=== PATIENT | male | born 1945 | race Two or more races ===

== ENCOUNTER 2017-04-12 06:59 | Day surgery (SDC) | payer MEDICARE, OTHER ==
--- NOTE | 2017-04-08 13:45 | Pre-Procedure Note/Attestation ---
Pre-Procedure Note/Attestation Complete Prior to Procedure Planned Procedure: bilateral Procedure Narrative: 1- Ptosis correction upper lids. 2- Entropion correction upper lids. 3-Blepharoplasty uppers lids. 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 I attest that, if there was a reasonable possibility of needing a blood transfusion, the patient (or the patient's legal district sales representative) was given the [facility] standardized written summary, pursuant to the Leonel Ivette Blood Safety Act ([place] Health and Safety Code # 1645, as amended). I attest that I re-evaluated the patient just prior to the surgery and that there has been no change in the patient's H&P, except as documented below: BG BRUCE Apr 08, 2017 13:45
[2017-04-12] VITALS (9 sets, daily range): BP systolic 132–145; BP diastolic 68–84
[~2017-04-12] VITALS: Ht 182.9 cm; Wt 81.6 kg
[~2017-04-12 06:59] MED LIST: Akten 3.5% 1ml Btl BOTH EYES ONE; Bupivacaine 0.75% 30ml vial INJ ONE; Maxitrol Opth Oint 3.5gm BOTH EYES ONE; NKM; Povidone-Iodine 5% opth solution ONE
[2017-04-12] MEDS ORDERED: Akten 3.5% 1ml Btl ONE (07:15)
[2017-04-12] MEDS ORDERED: fentaNYL 100 mcg/2 mL IV ONE (08:30)
[2017-04-12] MEDS ORDERED: LR 1000ml ONE (08:30)
[2017-04-12] MEDS ORDERED: Midazolam 2mg/2ml Inj ONE (08:30)
[2017-04-12] MEDS ORDERED: Lidocaine 2% 20mg/ml/Epi 0.005mg/ml 20ml vial ONE (08:30)
[2017-04-12] MEDS ORDERED: Propofol 200mg/20ml IV ONE (08:30)
[2017-04-12] MEDS ORDERED: LR 1000ml 1,000 ML IVLG SCH (08:55)
--- NOTE | 2017-04-12 08:55 | Anethesia Preoperative Eval ---
Anesthesia Pre-op PMH/ROS General Date of Evaluation: Apr 12, 2017 Time of Evaluation: 08:22 Anesthesiologist: Taylor ASA Score: ASA 2 Mallampati Score Class I : Soft palate, uvula, fauces, pillars visible Class II: Soft palate, uvula, fauces visible Class III: Soft palate, base of uvula visible Class IV: Only hard plate visible Mallampati Classification: Class II Surgeon: Hina Diagnosis: Bilateral ptosis Surgical Procedure: Bilateral blepharoplasty Anesthesia History: none Family History: no anesthesia problems Allergies: Coded Allergies: No Known Allergies (Unverified , 04/11/17) Medications: see eMAR Past Medical History Cardiovascular: Reports: HTN - mild, Denies: CAD, ND, valve dz, arrhythmia, other Pulmonary: Denies: asthma, COPD, [place], other Gastrointestinal/Genitourinary: Reports: GERD - mild, Denies: CRI, ESRD, other Neurologic/Psychiatric: Denies: dementia, CVA, depression/anxiety, TIA, other Endocrine: Denies: DM, hypothyroidism, steroids, other HEENT: Denies: cataract (L), cataract (R), glaucoma, [place] (L), [place] (R), other Hematology/Immune: Denies: anemia, DVT, bleeding disorder, other Musculoskeletal/Integumentary: Denies: OA, RA, DJD, DDD, edema, other PMH Narrative: as above PSxH Narrative: Cholecystectomy Anesthesia Pre-op Phys. Exam Physician Exam Last Vital Signs Date Time Temp Pulse Resp B/P (MAP) Pulse Ox O2 Delivery O2 Flow Rate FiO2 04/12/17 07:46 97.2 67 18 140/77 95 Room Air Constitutional: NAD Neurologic: CN 2-12 intact Cardiovascular: RRR, no M/R/G Respiratory: CTA Gastrointestinal: S/NT/ND Airway Exam Mallampati Score: Class II MO: limited Neck: stiff ROM: limited Teeth: missing Dentures: no upper, no lower Anesthesia Pre-op A/P Labs see chart Studies Pre-op Studies: EKG - NSR Risk Assessment & Plan Assessment: ASA 2 Plan: MAC Status Change Before Surgery: No Pre-Antibiotics Drug: none KEENAN ROJAS M.D. Apr 12, 2017 08:55
[2017-04-12] MEDS ORDERED: fentaNYL 100 mcg/2 mL IV PRN (09:00)
[2017-04-12] MEDS ORDERED: DiphenhydrAMINE 50mg/ml Inj IVP PRN (09:00)
--- NOTE | 2017-04-12 10:11 | Discharge Summary ---
Discharge Summary Discharge Summary Discharge Summary DATE OF ADMISSION: 04/12/2017 DATE OF DISCHARGE: 04/12/2017 REASON FOR HOSPITALIZATION: 1- Ptosis upper lids 2- entropion, upper lids 3- dermatochalasis, blepharochalasis, upper lids SURGERY PERFORMED: 1- Ptosis correction, upper lids 2- Entropion correction, upper lids 3- blepharoplasty, upper lids CONDITION IN THE HOSPITAL:The patient tolerated the surgery without complications. DISCHARGE CONDITION: The patient was stable at discharge. DISCHARGE MEDICATIONS: 1. Tobradex eye drops one drop q.i.d, OU 2. Maxitrol eye ointment apply to lids bid, OU 3. Keflex 500mg, one PO q8h. 4- [place] 5/325mg one Po q6h PRN per pain POSTOPERATIVE ORDERS: The patient has to rest at home. No bending, No lifting, No watching Television tonight. POSTOPERATIVE FOLLOW UP: The patient will be followed in my office tomorrow morning at 7 o'clock. BG BRUCE Apr 12, 2017 10:11
--- NOTE | 2017-04-12 11:21 | Immediate Post-Op Evaluation ---
Immediate Post-Op Evalulation Immediate Post-Op Evalulation Procedure: Bilateral blepharoplasty Date of Evaluation: Apr 12, 2017 Time of Evaluation: 10:12 IV Fluids: 400 Blood Products: none Estimated Blood Loss: min Urinary Output: none Blood Pressure Systolic: 134 Blood Pressure Diastolic: 63 Pulse Rate: 62 Respiratory Rate: 20 O2 Sat by Pulse Oximetry: 99 Temperature (Fahrenheit): 97.5 Pain Score (1-10): 2 Nausea: No Vomiting: No Complications none Patient Status: awake, patent, none Hydration Status: adequate KEENAN ROJAS M.D. Apr 12, 2017 11:21
--- NOTE | 2017-04-12 11:23 | 48 Hour Post Anesthesia Eval ---
Post Anesthesia Evaluation Procedure: Bilateral blepharoplasty Date of Evaluation: Apr 12, 2017 Time of Evaluation: 11:21 Blood Pressure Systolic: 136 0: 74 Pulse Rate: 64 Respiratory Rate: 18 Temperature (Fahrenheit): 97.6 O2 Sat by Pulse Oximetry: 98 Airway: patent Nausea: No Vomiting: No Pain Intensity: 1 Hydration Status: adequate Cardiopulmonary Status: stable Mental Status/LOC: patient returned to baseline Follow-up Care/Observations: n/a Post-Anesthesia Complications: none Follow-up care needed: ready to discharge KEENAN ROJAS M.D. Apr 12, 2017 11:22
--- NOTE | 2017-04-13 08:31 | Operative Note - Dictated ---
DATE OF OPERATION: 04/12/2017 FACILITY: [facility]. SURGEON: Duran Santamaria M.D. DOG TRAINER: None. ANESTHESIOLOGIST: Jadiel Vazquez M.D. ANESTHESIA: Monitored anesthesia care (MAC) plus local anesthesia with lidocaine 2% with epinephrine 1:100,000. PREOPERATIVE DIAGNOSES: 1. Ptosis, upper lids. 2. Entropion, upper lids. 3. Dermatochalasis and blepharochalasis, upper lids. POSTOPERATIVE DIAGNOSES: 1. Ptosis, upper lids. 2. Entropion, upper lids. 3. Dermatochalasis and blepharochalasis, upper lids. SURGERY PERFORMED: 1. Ptosis correction, upper lids. 2. Entropion correction, upper lids. 3. Blepharoplasty, upper lids. INDICATION FOR SURGERY: The patient is a 71-year-old gentleman with no past medical history. He is not taking any medications. He is not allergic to any medications. He is not drinking. He is not smoking. The patient's past surgery including cholecystectomy 5 years ago. The patient is complaining of blurry vision and droopy eyelids and difficulty driving because of upper lid droopiness. He is suffering from severe blepharochalasis, ptosis, and entropion of the upper lids. This problem is progressive dermatochalasis skin disease, which resulted in changes of corneal curvature, which induces astigmatism with covering of the visual axis, which is interruption for driving. The severity of the patient's dermatochalasis, ptosis, and entropion and other clinical changes are clearly demonstrated on enclosed photos and the patient's visual lawrence. The only solution for this patient is correction of all those disfigurements and anatomic changes with surgery. There is no alternative for that. INFORMED CONSENT: The nature of the surgery, risks, benefits, alternatives, and potential complications were explained in detail to the patient in his language Farsi. He voiced understanding and accepted all the complications. The potential complications including, but not limited to bleeding, infection, corneal exposure, overcorrection, undercorrection, ecchymosis, swelling of the face, hematoma, dry eye syndrome, loss of eyelashes, loss of eyebrow, inequality of both eyes, changes in vision, even loss of the vision, and loss of the eye were explained in detail to the patient. The patient voiced understanding and accepted all the complications. Then, he signed the consent form, which is in the chart. DESCRIPTION OF SURGERY AND FINDINGS: Following that, the patient was taken to the operation room in a stable condition. Lidocaine gel [place] 3.5% were applied to the conjunctiva of both eyes. Following that, the upper eyelids were marked with a marking pen 10 mm above the root of the eyelashes and 15 mm below the lower part of the eyebrows. About 25 mm of the skin was left to facilitate the eye closure. IV sedation was given by the anesthesiologist, Dr. Vazquez. After adequate anesthesia and sedation had been achieved, the upper eyelid, eyebrows, and 06:04 skin all were anesthetized with 2% lidocaine with epinephrine 1:100,000. Following that, using a Bovie knife, the skin and subdermal tissue were dissected from the orbicularis oculi muscle and excised. A cut was made in to the orbicularis oculi muscle and 2 fat compartments were released and sculptured conservatively. Following that, the levator palpebrae superioris tendon was tacked about 6 mm and stitched with 6-0 Vicryl and then it was stitched with a Quill entering into the tissue. Following that, a groove was made about 3 mm above the root of the superior eyelid lashes. Then, the material inside the groove was excised. Following that, with 6-0 Vicryl, the lids of the groove was stitched and the eyelid border was rotated upwards and lashes were turned from downward to upward. Following that, the orbicularis oculi muscle was stitched with 6-0 Vicryl. Keratotomy was performed. Following that, the skin was stitched in the fashion of continuous running aesthetic pressure with 6-0 plain gut. Following that, the patient was transferred to the recovery room. In the recovery room, hot compresses were applied to the wound. The wound was checked for bleeding. There was no bleeding. Postoperative orders and directions were given to the patient. The patient will be discharged home upon stabilization. The patient will be followed in my office tomorrow morning. Duran Santamaria M.D. DR: JUAN LUIS JOB#: [id number] CC:
== END 2017-04-12 11:25 | disposition home or self-care (01) ==
LOC: SUR 06:59
DX: H02.403 Unspecified ptosis of bilateral eyelids (principal); H02.004 Unspecified entropion of left upper eyelid; H02.001 Unspecified entropion of right upper eyelid; H02.34 Blepharochalasis left upper eyelid; H02.31 Blepharochalasis right upper eyelid; H02.834 Dermatochalasis of left upper eyelid; H02.831 Dermatochalasis of right upper eyelid; H53.8 Other visual disturbances; Z90.49 Acquired absence of other specified parts of digestive tract
CPT/HCPCS: 15822; J2250; J2704; J3010; J7120; 94003; 94150